=== PATIENT | female | born 1950 ===

== ENCOUNTER 2023-08-14 10:45 | Inpatient (IN) | payer OTHER ==
[~2023-08-14] VITALS: Ht 152.4 cm; Wt 93.0 kg
[2023-08-14] MEDS ORDERED: PROAIR RESPICL90 MCG IH (13:58)
[2023-08-14] MEDS ORDERED: ADVAIR HFA 115/12 GM IH (13:58)
[2023-08-14] MEDS ORDERED: SINGULAIR10 MG PO (13:58)
[2023-08-14] MEDS ORDERED: MILLIPRED5 MG PO (13:58)
[2023-08-14] MEDS ORDERED: ZESTRIL5 MG PO (13:58)
[2023-08-14] MEDS ORDERED: CLONAZEPAM0.5 MG PO (13:59)
[2023-08-22 16:25] LABS: HEMATOCRIT 38.9 % (36.0-45.00); HEMOGLOBIN 12.6 g/dL (12.0-15.00); MEAN CELL VOLUME 83.9 fL (80.00-100.00); MEAN CORPUSCULAR HEMOGLOBIN 27.2 pg (27.00-32.0); MEAN CORPUSCULAR HGB CONC 32.4 g/dl (32.0-36.0); PLATELET COUNT 289 K/uL (150-450); RED BLOOD COUNT 4.64 M/uL (4.00-6.00); RED CELL DISTRIBUTION WIDTH 15.3 % (11.5-14.5)
[2023-08-22 16:45] LABS: CALCIUM 8.6 mg/dL (8.5-10.1); CREATININE SERUM 0.9 mg/dL (0.55-1.02); GFR 61.72; MAGNESIUM 2.2 mg/dL (1.8-2.4); PHOSPHOROUS 4.2 mg/dL (2.5-4.9); POTASSIUM 3.84 mEq/L (3.5-5.1)
[2023-08-22 22:39] LABS: ABG PH 7.352 (7.35-7.45); ABG PO2 58.8 mmHg (80-100); ABG pCO2 52.7 mmHg (35-45); BASE EXCESS 1.9 mmol/l; BICARBONATE 28.6 mmol/l (23-25); SaO2 88.8 %; Tco2 30.2 mmol/l; o2 36 %
[2023-08-22 22:40] LABS: allen test SATISFACTORY; puncture site RADIAL RIGHT
[2023-08-23 08:51] LABS: ALBUMIN 2.6 gm/dL (3.4-5.0); CALCIUM 8.2 mg/dL (8.5-10.1); CREATININE SERUM 0.8 mg/dL (0.55-1.02); GFR 70.71; MAGNESIUM 2.1 mg/dL (1.8-2.4); PHOSPHOROUS 3.8 mg/dL (2.5-4.9); POTASSIUM 4.49 mEq/L (3.5-5.1)
[2023-08-23 09:17] LABS: ABG PH 7.324 (7.35-7.45); ABG PO2 62.6 mmHg (80-100); ABG pCO2 59.2 mmHg (35-45); BASE EXCESS 2.4 mmol/l; SaO2 89.7 %
[2023-08-23 09:18] LABS: Tco2 31.9 mmol/l; allen test SATISFACTORY; o2 21 %; puncture site RADIAL RIGHT
[2023-08-23 09:18] LABS: HEMOGLOBIN 12.5 g/dL (12.0-15.00); MEAN CELL VOLUME 83.8 fL (80.00-100.00); MEAN CORPUSCULAR HEMOGLOBIN 26.8 pg (27.00-32.0); PLATELET COUNT 301 K/uL (150-450); RED BLOOD COUNT 4.65 M/uL (4.00-6.00); RED CELL DISTRIBUTION WIDTH 15.1 % (11.5-14.5)
== END 2023-08-24 07:19 | disposition home or self-care (01) | DRG 333 ==
LOC: SURH 08-22 05:10 → O/R 08-22 05:10 → SURH 08-22 10:45
PROVIDERS: Internal Medicine Geriatric Medicine; ADMIT Surgery; ATTEND Surgery
PROC: 0DBP4ZZ Excision of Rectum, Percutaneous Endoscopic Approach (ICD-10-PCS; principal; 2023-08-22 14:30)
DX: C20 Malignant neoplasm of rectum (principal); K62.5 Hemorrhage of anus and rectum; K62.89 Other specified diseases of anus and rectum

== ENCOUNTER 2025-06-27 11:15 | Inpatient (IN) | payer OTHER ==
[~2025-06-27] VITALS: Ht 149.9 cm; Wt 79.4 kg
[~2025-06-27 11:15] MED LIST: ADVAIR HFA 115/12 GM IH; CLONAZEPAM0.5 MG PO; MILLIPRED5 MG PO; PROAIR RESPICL90 MCG IH; SINGULAIR10 MG PO; ZESTRIL5 MG PO
[2025-07-01] MEDS ORDERED: POVIDONE-IODINE 118 ML BOTT TOP ONE (11:15)
[2025-07-01] MEDS ORDERED: BUPIVACAINE HCL 30 ML VIAL IJ ONE (11:15)
[2025-07-01] MEDS ORDERED: DIBUCAINE 15 GM OINT..GM. TUBE RECTAL ONE (11:15)
[2025-07-01] MEDS ORDERED: METRONIDAZOLE/SODIUM CHLORIDE 500 MG/100 ML PIGGYBACK IV ONE (11:15)
[2025-07-01] MEDS ORDERED: CEFTRIAXONE SODIUM 2,000 MG VIAL IV ONE (11:15)
[2025-07-01] MEDS ORDERED: HEMOSTATIC MATRIX 1 KIT KIT TOP ONE (11:15)
[2025-07-01] MEDS ORDERED: ENALAPRILAT DIHYDRATE 1.25 MG/ML VIAL IV ONE (12:15)
[2025-07-01] MEDS ORDERED: SUGAMMADEX SODIUM 200 MG/2 ML VIAL IV ONE (12:15)
[2025-07-01] MEDS ORDERED: PHENOL 177 ML BOTTLE MM PRN (17:15)
[2025-07-01] MEDS ORDERED: ENALAPRILAT DIHYDRATE 1.25 MG/ML VIAL IV PRN (17:45)
[2025-07-01] MEDS ORDERED: ALBUTEROL SULFATE 3 ML/2.5 MG AMPUL.NEB IH SCH (18:00)
[2025-07-01] MEDS ORDERED: RINGERS SOLUTION,LACTATED 1,000 ML IV SCH (18:00)
[2025-07-01] MEDS ORDERED: ACETAMINOPHEN 500 MG GEL..CAP PO PRN (18:15)
[2025-07-01] MEDS ORDERED: MORPHINE SULFATE 4 MG/ML CARTRIDGE IV PRN (18:15)
[2025-07-01 19:48] VITALS: BP 129/79; O2SAT 100
[2025-07-01 19:49] LABS: BASO % 0.4 % (0.1-1.2); EOS # 0.08 (0.04-0.54); EOS % 1.0 % (0.7-7.0); LYMPH # 0.97 (1.18-3.74); LYMPH % 12.0 % (19.3-53.1); MEAN PLATELET VOLUME 10.30 fl (9.4-12.4); MONO # 0.54 (0.24-0.82); MONO % 6.7 % (4.7-12.5); NEUT # 6.44 (1.56-6.13); NEUT % 79.8 % (34.0-71.1); RED CELL DISTRIBUTION WIDTH 13.5 % (11.6-14.4)
[2025-07-01 20:40] VITALS: O2SAT 95
[2025-07-01] MEDS ORDERED: GABAPENTIN 300 MG CAPSULE PO SCH (21:00)
[2025-07-02 01:21] VITALS: BP 136/79; O2SAT 99
[2025-07-02 01:50] VITALS: O2SAT 100
[2025-07-02 05:21] VITALS: O2SAT 90
[2025-07-02 08:26] LABS: BUN CREA RATIO 16.0 (7.0-25.0); CREATININE SERUM 0.68 mg/dL (0.55-1.02); GFR 84.81; GLUCOSE FASTING 84.0 mg/dL (65-100); OSMOLALITY SERUM 284.0 MOSM/KG (275-295)
[2025-07-02 08:34] LABS: BASO % 0.4 % (0.1-1.2); EOS # 0.13 (0.04-0.54); EOS % 1.3 % (0.7-7.0); LYMPH # 1.30 (1.18-3.74); LYMPH % 12.7 % (19.3-53.1); MEAN PLATELET VOLUME 10.20 fl (9.4-12.4); MONO # 0.79 (0.24-0.82); MONO % 7.7 % (4.7-12.5); NEUT # 7.97 (1.56-6.13); NEUT % 77.6 % (34.0-71.1); RED CELL DISTRIBUTION WIDTH 13.6 % (11.6-14.4)
[2025-07-02 08:51] VITALS: O2SAT 90
[2025-07-02 08:56] VITALS: BP 137/69; O2SAT 95
[2025-07-02] MEDS ORDERED: LISINOPRIL 10 MG TABLET PO SCH (09:00)
== END 2025-07-02 14:29 | disposition home or self-care (01) | DRG 349 ==
LOC: SURH 07-01 08:00 → O/R 07-01 08:00 → SURH 07-01 11:15
PROVIDERS: Internal Medicine Geriatric Medicine; ADMIT Surgery; ATTEND Surgery
PROC: 0DBP7ZZ Excision of Rectum, Via Natural or Artificial Opening (ICD-10-PCS; principal; 2025-07-01 12:30)
DX: D37.5 Neoplasm of uncertain behavior of rectum (principal)
CPT/HCPCS: 45123; 0184T